=== PATIENT | male | born 1970 | race Caucasian/White ===

== ENCOUNTER 2019-07-18 02:59 | Emergency (ER) | payer BC ==
[2019-07-18 03:19] LABS: #Basophils 0.1 thou/uL (0.0-0.2); #Eosinphils 0.2 thou/uL (0.0-0.7); #Lymphocytes 2.9 thou/uL (1.20-3.40); #Monocytes 0.7 thou/uL (0.11-0.59); #Neutrophils 3.5 thou/uL (1.40-6.50); %Eosinophils 2.5 % (0.0-10.0); %Lymphocytes 39.4 % (21.0-51.0); %Monocytes 9.7 % (0.0-10.0); %Neutrophils 47.4 % (42.0-75.0); Hemoglobin 14.9 g/dL (14.0-18.0); Mean Corpuscular HGB CONC 31.9 g/dL (32.0-36.0); Platelet Count 216 thou/uL (130-400); RBC Distribution Width 11.6 % (11.5-14.5); Red Blood Cell (RBC) Count 4.99 mill/uL (4.70-6.10); White Blood Cell (WBC) Count 7.4 thou/uL (4.8-10.8)
[2019-07-18] MEDS ORDERED: Heparin 10,000 UNITS/ 10 ML VIAL ONE (03:19)
[2019-07-18] MEDS ORDERED: Heparin 5,000 UNITS/ML VIAL ONE (03:19)
[2019-07-18] MEDS ORDERED: Aspirin 325 MG TAB ONE (03:19)
[2019-07-18 03:26] LABS: INR-International Normal Ratio 0.9; PTT 25.6 sec (22.9-36.1); Prothrombin Time 11.8 sec (12.0-14.7)
[2019-07-18] MEDS ORDERED: Nitroglycerin 50 MG/250 ML BOT 250 ML ONE (03:27)
[2019-07-18] MEDS ORDERED: Heparin 25,000 units/D5W 500 ML ONE (03:32)
[2019-07-18 03:46] LABS: ALT (SGPT) 33 U/L (8-55); AST (SGOT) 24 U/L (5-34); Albumin 4.5 g/dL (3.5-5.0); Alkaline Phosphatase 73 U/L (40-110); Anion Gap 16 mmol/L (10-20); BUN (Urea Nitrogen) 18 mg/dL (8.9-20.6); Bilirubin, Total 0.6 mg/dL (0.2-1.2); Calc. Creatinine Clearance 0 mL/min (70-130); Calcium 8.7 mg/dL (7.8-10.44); Carbon Dioxide 26 mmol/L (22-29); Chloride 102 mmol/L (98-107); Estimated GFR-MDRD 67; Globulin 2.7 g/dL (2.4-3.5); Glucose 127 mg/dL (70-105); Potassium 3.4 mmol/L (3.5-5.1); Protein, Total 7.2 g/dL (6.0-8.3); Sodium 141 mmol/L (136-145)
[2019-07-18 03:48] LABS: CKMB 1.3 ng/mL (0-6.6); Troponin I Less than 0.010 ng/mL (< 0.028)
[2019-07-18 04:13] LABS: CK (CPK) 255 U/L (30-200); Lipase 39 U/L (8-78)
[2019-07-18] MEDS ORDERED: Heparin 10,000 UNITS/1 ML VIAL ONE (04:48)
[2019-07-18] MEDS ORDERED: DOPamine 400 MG/D5W 250 ML 250 ML ONE (04:51)
[2019-07-18] MEDS ORDERED: Ondansetron PF 4 MG/2 ML Vial ONE (05:05)
--- NOTE | 2019-07-18 07:37 | RAD ---
Exam: Chest one view HISTORY:Chest pain. Comparison: None. FINDINGS: Cardiac silhouette: Normal Aorta: Unremarkable Pulmonary vessels: Normal Costophrenic angles: Clear LUNGS: No masses or consolidation. Pneumothorax: None Osseous abnormalities: None IMPRESSION: No acute cardiopulmonary process.
== END 2019-07-18 04:00 | disposition short-term general hospital (02) ==
LOC: MADERS 02:59
DX: I21.3 ST elevation (STEMI) myocardial infarction of unspecified site (principal)
CPT/HCPCS: 71045; 80053; 82553; 83690; 84484; 85025; 85610; 85730; 93005; 96365; 96375; J1265; J1644; J2405